=== PATIENT | female | born 1995 | race Caucasian/White ===

== ENCOUNTER 2017-10-01 19:59 | Emergency (ER) | payer OTHER, MEDICAID ==
[~2017-10-01] VITALS: Ht 167.6 cm; Wt 81.7 kg
[~2017-10-01 19:59] MED LIST: ACETAMINOPHEN-1 EAC1 PO; AMOXICILLIN400 MG PO; AMOXICILLIN875 MG PO; BACTRIM DS TAB1 EACH PO; KEFLEX500 MG PO; MEDROLDOSEPACK PO; NOHOMEMEDICATIONS; NORCO 5-325 TA1 EAC1 PO; NORCO 5-325 TA1 EACH PO; PREDNISONE 10 M10 M1 PO; TESSALON200 MG PO; VALACYCLOVIR1000 MG PO; VENTOLIN HFA INH8 GM IH; ZPAK PO
[2017-10-01] MEDS ORDERED: IBUPROFEN 800800 M1 PO (20:13)
[2017-10-01] MEDS ORDERED: KEFLEX500 M1 PO (20:13)
[2017-10-01 20:26] VITALS: BP 124/79
== END 2017-10-01 20:26 | disposition home or self-care (01) ==
LOC: M.ERS 19:59
DX: H66.93 Otitis media, unspecified, bilateral (principal); F10.99 Alcohol use, unspecified with unspecified alcohol-induced disorder

== ENCOUNTER 2018-10-14 12:32 | Emergency (ER) | payer OTHER, MEDICAID ==
[~2018-10-14] VITALS: Ht 165.1 cm; Wt 81.7 kg
[~2018-10-14 12:32] MED LIST changes: +IBUPROFEN 800800 M1 PO; +KEFLEX500 M1 PO
[2018-10-14 14:02] LABS: URINE BILIRUBIN NEGATIVE (Negative); URINE BLOOD NEGATIVE (Negative); URINE CLARITY CLEAR; URINE COLOR YELLOW; URINE GLUCOSE-RANDOM NEGATIVE (Negative); URINE KETONES NEGATIVE (Negative); URINE LEUKOCYTES-REFLEX NEGATIVE (Negative); URINE NITRITE-REFLEX NEGATIVE (Negative); URINE PROTEIN NEGATIVE (Negative); URINE UROBILINOGEN 0.2 E.U./dl (0.2-1.0)
[2018-10-14 14:25] LABS: ABSOLUTE LYMPHOCYTES 1.2 thou/uL (0.8-5.3); ABSOLUTE MONOCYTES 0.5 thou/uL (0.0-1.2); BASOPHILS 0.4 %; EOSINOPHILS 0.5 %; HEMATOCRIT 40.9 % (37.0-47.0); LYMPHOCYTES 12.3 %; MCH 32.5 pg (26.0-34.0); MCHC 34.1 g/dL (28.0-37.0); MCV 95.2 fL (80.0-100.0); MONOCYTES 5.5 %; MPV 8.1 fl. (7.2-11.1); NUCLEATED RBCS 0 /100WBC; PLATELET COUNT* 181 thou/uL (150-400); POLYS 81.3 %; RDW-CV 13.1 % (10.5-14.5); WBC 9.8 thou/uL (4.0-11.0)
[2018-10-14 14:32] LABS: ANION GAP 7 mmol/L (7-16); BUN 7 mg/dL (7-18); CALCIUM 8.9 mg/dL (8.5-10.1); CHLORIDE 103 mmol/L (98-107); CO2 28 mmol/L (21-32); CREATININE 0.8 mg/dL (0.6-1.3); GLUCOSE 97 mg/dL (70-99); SODIUM 138 mmol/L (136-145)
[2018-10-14 14:39] LABS: ALBUMIN 3.8 g/dL (3.4-5.0); ALKALINE PHOSPHATASE 47 U/L (46-116); SGOT 21 U/L (15-37); SGPT 31 U/L (30-65); TOTAL BILIRUBIN 0.7 mg/dL (<0.1-1.0); TROPONIN-I LEVEL <0.06 ng/mL (<0.06)
[2018-10-14 15:51] VITALS: BP 104/57
--- NOTE | 2018-10-15 18:04 | EKG ---
[place] [address] ELECTROCARDIOGRAM REPORT Name: GARLAND KHAN Room: [facility]#: [id number] Admission: 10/14/18 Attend Phys: Discharge: 10/14/18 Date of : [birth year] Report #: [id number] THIS REPORT FOR: //name// [facility] ED Test Date: 2018-10-14 Test Time: 14:18:36 Pat Name: GARLAND KHAN Department: Room: Gender: F Eligibility And Occupancy Interviewer: LINWOOD : 1995 Requested By: Bronwyn Beckford Order Number: [id number] MD: Alessandro Herrera Measurements Intervals [place] Rate: 70 P: 43 PA: 193 QRS: 73 QRSD: 103 T: 26 QT: 425 QTc: 459 Interpretive Statements Sinus rhythm No previous ECG available for comparison Electronically Signed On 10-15-2018 18:04:00 [employer] by Alessandro Herrera [email or web address] <ELECTRONICALLY SIGNED> By: Alessandro Herrera MD, [facility] 10/15/18 1804 1418 1418 Alessandro Herrera MD, FACC /EPI
== END 2018-10-14 15:53 | disposition home or self-care (01) ==
LOC: M.ERS 12:32
PROVIDERS: Nurse Practitioner Family
DX: R42 Dizziness and giddiness (principal); R07.89 Other chest pain; F17.200 Nicotine dependence, unspecified, uncomplicated

== ENCOUNTER 2019-02-20 13:20 | Emergency (ER) | payer OTHER, MEDICAID ==
[~2019-02-20] VITALS: Ht 167.6 cm; Wt 81.7 kg
[2019-02-20 13:53] LABS: URINE BILIRUBIN NEGATIVE (Negative); URINE BLOOD NEGATIVE (Negative); URINE CLARITY CLEAR; URINE COLOR YELLOW; URINE GLUCOSE-RANDOM NEGATIVE (Negative); URINE KETONES NEGATIVE (Negative); URINE LEUKOCYTES-REFLEX NEGATIVE (Negative); URINE NITRITE-REFLEX NEGATIVE (Negative); URINE PROTEIN NEGATIVE (Negative); URINE UROBILINOGEN 0.2 E.U./dl (0.2-1.0)
[2019-02-20 14:35] LABS: ABSOLUTE EOSINOPHILS 0.1 thou/uL (0.0-0.7); ABSOLUTE LYMPHOCYTES 1.1 thou/uL (0.8-5.3); ABSOLUTE MONOCYTES 0.5 thou/uL (0.0-1.2); ABSOLUTE NEUTROPHILS 5.8 thou/uL (1.6-8.1); BASOPHILS 0.3 %; EOSINOPHILS 0.8 %; HEMATOCRIT 38.5 % (37.0-47.0); HEMOGLOBIN 12.9 gm/dL (12.0-15.0); LYMPHOCYTES 14.3 %; MCH 31.4 pg (26.0-34.0); MCHC 33.5 g/dL (28.0-37.0); MCV 93.8 fL (80.0-100.0); MONOCYTES 6.5 %; MPV 8.1 fl. (7.2-11.1); NUCLEATED RBCS 0 /100WBC; PLATELET COUNT* 180 thou/uL (150-400); POLYS 78.1 %; RBC 4.11 mil/uL (4.20-5.00); RDW-CV 12.8 % (10.5-14.5); WBC 7.4 thou/uL (4.0-11.0)
[2019-02-20 14:42] LABS: CREATININE 0.8 mg/dL (0.6-1.3)
[2019-02-20 14:46] LABS: ALBUMIN 3.6 g/dL (3.4-5.0); TOTAL BILIRUBIN 0.5 mg/dL (<0.1-1.0); TOTAL PROTEIN 6.9 g/dL (6.4-8.2)
[2019-02-20] MEDS ORDERED: TRINATE TABLET1 EACH PO (16:12)
[2019-02-20 16:45] VITALS: BP 136/78
== END 2019-02-20 16:46 | disposition home or self-care (01) ==
LOC: M.ERS 13:20
PROVIDERS: Family Medicine; Nurse Practitioner Family
DX: O46.91 Antepartum hemorrhage, unspecified, first trimester (principal); Z32.01 Encounter for pregnancy test, result positive; Z3A.01 Less than 8 weeks gestation of pregnancy